=== PATIENT | female | born 1990 | race Hispanic/Latino ===

== ENCOUNTER 2017-03-05 07:39 | Observation (INO) | payer BC, MEDICAID | END 2017-03-05 09:23 | disposition home or self-care (01) | LOC: EDH 07:39 → LDH 07:40 | PROVIDERS: ADMIT Obstetrics & Gynecology; ATTEND Obstetrics & Gynecology | DX: O42.92 Full-term premature rupture of membranes, unspecified as to length of time between rupture and onset of labor (principal); Z3A.37 37 weeks gestation of pregnancy | CPT/HCPCS: 99285; G0378 ×2 ==

== ENCOUNTER 2017-03-07 05:26 | Inpatient (IN) | payer BC, MEDICAID ==
[~2017-03-07] VITALS: Ht 154.9 cm; Wt 59.0 kg
[2017-03-07] MEDS ORDERED: LACTATED RINGERS 1000ML IV PRN (05:45)
[2017-03-07 06:04] LABS: APPEARANCE,URINE Turbid (CLEAR); BILIRUBIN,URINE Negative (NEGATIVE); COLOR,URINE Yellow (YELLOW); GLUCOSE, URINE (UA) Negative (NEGATIVE); KETONES,URINE Negative (NEGATIVE); LEUKOCYTE ESTERASE ,URINE Small (NEGATIVE); NITRATE,URINE Negative (NEGATIVE); OCCULT BLOOD,URINE Moderate (NEGATIVE); PROTEIN,URINE Negative (NEGATIVE)
[2017-03-07 06:24] LABS: BACTERIA,URINE Moderate /HPF (None Seen)
[2017-03-07 06:25] LABS: SQUAMOUS EPITHELIAL CELL,UR Many /LPF (0-2)
[2017-03-07 06:50] VITALS: BP 108/56
[2017-03-07] MEDS: LACTATED RINGERS 1000ML 1,000 ML IV PRN ×3 (08:20→12:24)
[2017-03-07] MEDS ORDERED: OXYTOCIN 10 USP UNITS/ML ONE ×2 (08:40→08:41)
[2017-03-07] MEDS ORDERED: LACTATED RINGERS 1000ML 1,000 ML IV ONE ×2 (08:40→08:41)
[2017-03-07] MEDS ORDERED: NALOXONE HCL 0.4 MG/1 ML ML IV PRN (08:45)
[2017-03-07] MEDS ORDERED: LACTATED RINGERS 500 ML 500 ML IV PRN (08:45)
[2017-03-07] MEDS ORDERED: EPHEDRINE SULFATE 50 MG/ML AMPULE IVP PRN (08:45)
[2017-03-07] MEDS: OXYTOCIN 10 USP UNITS/ML 20 UNIT in LACTATED RINGERS 1000ML 1,000 ML IV SCH ×2 (08:47→12:15)
[2017-03-07 08:54] LABS: HEMATOCRIT 32.8 % (36-48); MEAN CORPUSCULAR HEMOGLOBIN 26.2 pg (27.0-33.0); MEAN CORPUSCULAR HGB CONC 33.4 g/dL (32.0-36.0); MEAN CORPUSCULAR VOLUME 78.7 fL (79-99); PLATELET COUNT (AUTO) 146 K/uL (130-400); RED BLOOD CELL COUNT(AUTO) 4.18 MIL/uL (4.00-5.50); RED CELL DISTRIBUTION WIDTH 15.6 % (11.0-15.5)
[2017-03-07] MEDS ORDERED: LANOLIN 30GM OINTMENT TP PRN (12:30)
[2017-03-07] MEDS ORDERED: OXYTOCIN-LR 20 UNITS/1000 ML 1,000 ML IV SCH (12:30)
[2017-03-07] MEDS ORDERED: DIPH,PERTUSS(ACELL),TET VAC/PF 0.5 ML VIAL IM PRN (12:30)
[2017-03-07] MEDS ORDERED: MEASLES/MUMPS/RUBELLA VACCINE, LIVE 0.5 ML/VIAL SQ PRN (12:30)
[2017-03-07] MEDS ORDERED: HYDROCODONE/ACETAMINOPHEN 5/325 MG TAB PO PRN (12:30)
[2017-03-07] MEDS ORDERED: BENZOCAINE/LANOLIN/ALOE VERA 60 ML AEROSOL TP PRN (12:30)
[2017-03-07] MEDS ORDERED: ACETAMINOPHEN-CODEINE 300/30MG TAB PO PRN (12:30)
[2017-03-07] MEDS ORDERED: ACETAMINOPHEN 325 MG TAB PO PRN (12:30)
[2017-03-07] MEDS ORDERED: WITCH HAZEL 1 PAD TP PRN (12:30)
[2017-03-07] MEDS ORDERED: IBUPROFEN 600 MG TABLET PO PRN (12:30)
[2017-03-07 16:04] VITALS: BP 108/58
[2017-03-07] MEDS: IBUPROFEN 800 MG TAB PO PRN (17:11)
[2017-03-07 19:09] VITALS: BP 107/70
[2017-03-07] MEDS: DOCUSATE SODIUM 100 MG CAP PO SCH (21:10)
[2017-03-08 00:05] VITALS: BP 97/56
[2017-03-08 04:05] VITALS: BP 84/44
[2017-03-08 04:55] VITALS: BP 83/49
[2017-03-08 05:02] VITALS: BP 96/58
[2017-03-08 07:07] LABS: HEMATOCRIT 27.8 % (36-48); MEAN CORPUSCULAR HEMOGLOBIN 26.3 pg (27.0-33.0); MEAN CORPUSCULAR HGB CONC 33.8 g/dL (32.0-36.0); NUCLEATED RED BLOOD CELLS 0.1 % (0.0-0.19); PLATELET COUNT (AUTO) 142 K/uL (130-400); RED BLOOD CELL COUNT(AUTO) 3.57 MIL/uL (4.00-5.50); RED CELL DISTRIBUTION WIDTH 15.3 % (11.0-15.5); WHITE BLOOD COUNT (AUTO) 7.5 K/uL (4.8-10.8)
[2017-03-08 07:23] LABS: HEPATITIS Bs ANTIGEN SCREEN P Negative (Negative)
[2017-03-08 08:04] VITALS: BP 110/63
[2017-03-08] MEDS: DOCUSATE SODIUM 100 MG CAP PO SCH (08:39)
[2017-03-08] MEDS: IBUPROFEN 800 MG TAB PO PRN (08:40)
[2017-03-08 12:26] VITALS: BP 112/72
== END 2017-03-08 14:35 | disposition home or self-care (01) | DRG 775 ==
LOC: EDH 05:26 → OBSVTOIN 05:27 → LDH 05:27 → WSH 16:40
PROVIDERS: ADMIT Obstetrics & Gynecology; ATTEND Obstetrics & Gynecology
PROC: 10907ZC Drainage of Amniotic Fluid, Therapeutic from Products of Conception, Via Natural or Artificial Opening (ICD-10-PCS; principal; 2017-03-07)
PROC: 10E0XZZ Delivery of Products of Conception, External Approach (ICD-10-PCS; 2017-03-07)
PROC: 3E0R3BZ Introduction of Anesthetic Agent into Spinal Canal, Percutaneous Approach (ICD-10-PCS; 2017-03-07)
PROC: 00HU33Z Insertion of Infusion Device into Spinal Canal, Percutaneous Approach (ICD-10-PCS; 2017-03-07)
PROC: 3E0234Z Introduction of Serum, Toxoid and Vaccine into Muscle, Percutaneous Approach (ICD-10-PCS; 2017-03-07)
PROC: 3E0134Z Introduction of Serum, Toxoid and Vaccine into Subcutaneous Tissue, Percutaneous Approach (ICD-10-PCS; 2017-03-07)
DX: O69.1XX0 Labor and delivery complicated by cord around neck, with compression, not applicable or unspecified (principal); Z23 Encounter for immunization; Z37.0 Single live birth; Z3A.38 38 weeks gestation of pregnancy
CPT/HCPCS: 36415; 81001; 85027; 86592; 86850; 86900; 86901; 87340; A4314; J2590; J7120